=== PATIENT | male | born 1955 | race Caucasian/White ===

== ENCOUNTER 2017-08-19 15:05 | Emergency (ER) | payer OTHER ==
[~2017-08-19] VITALS: Ht 172.7 cm; Wt 104.3 kg
[~2017-08-19 15:05] MED LIST: DOXYCYCLINE 10100 MG PO; HAWTHORN BERRY500 MG PO; ONDANSETRON HCL4 M2 PO
[2017-08-19 17:10] LABS: ABSOLUTE NEUTROPHILS 5.1 thou/uL (1.4-8.2); EOSINOPHILS 2.5 % (0.0-3.0); HEMATOCRIT 39.5 % (42.0-52.0); HEMOGLOBIN 13.5 gm/dL (14.0-18.0); LYMPHOCYTES 25.8 % (24.0-44.0); MCH 31.4 pg (26.0-34.0); MCHC 34.1 g/dL (28.0-37.0); MCV 92.1 fL (80.0-100.0); PLATELET COUNT 207 thou/uL (150-400); POLYS 59.7 % (36.0-66.0); RDW 13.2 % (10.5-14.5); WBC 8.5 thou/uL (4.0-11.0)
[2017-08-19 17:18] LABS: CALCIUM 8.9 mg/dL (8.5-10.1); POTASSIUM 3.6 mmol/L (3.5-5.1)
[2017-08-19] MEDS ORDERED: KEFLEX500 M1 PO (17:36)
[2017-08-19 17:48] VITALS: BP 148/73
== END 2017-08-19 17:50 | disposition home or self-care (01) ==
LOC: ER 15:05
PROVIDERS: Physician Assistant
DX: L03.115 Cellulitis of right lower limb (principal); I10 Essential (primary) hypertension; Z88.0 Allergy status to penicillin

== ENCOUNTER → 2018-04-23 | Outpatient (CLI) | payer OTHER ==
[~2018-04-23] MED LIST changes: +ASPIR 8181 MG; +COENZYME Q10200 M2; +KEFLEX500 M1 PO; +MSM1000 MG; +NORVASC2.5 MG; +RED YEAST RICE600 MG; +SAW PALMETTO160 MG; +TART CHERRY CA1 EACH
== END ==
LOC: ULTRA 07:16
DX: E04.1 Nontoxic single thyroid nodule (principal); R59.0 Localized enlarged lymph nodes